=== PATIENT | female | born 1990 | race Caucasian/White ===

== ENCOUNTER 2023-08-03 05:23 | Emergency (ER) | payer MEDICAID ==
[~2023-08-03] VITALS: Ht 162.6 cm; Wt 67.1 kg
[~2023-08-03 05:23] MED LIST: NITR100C6 PO
[2023-08-03 05:30] VITALS: TEMP 97.7
[2023-08-03] MEDS: HYDROcodone/acetaminophen 5mg/325mg tablet PO ONE (06:37)
[2023-08-03] MEDS ORDERED: HYDR-3965 PO (07:01)
[2023-08-03 07:10] VITALS: BP 143/109; PULSE 76; RESP 16; O2SAT 99
== END 2023-08-03 07:12 | disposition home or self-care (01) ==
LOC: ER 05:23
DX: S20.211A Contusion of right front wall of thorax, initial encounter (principal); Z88.0 Allergy status to penicillin; Z88.8 Allergy status to other drugs, medicaments and biological substances; I10 Essential (primary) hypertension; F41.9 Anxiety disorder, unspecified; W18.30XA Fall on same level, unspecified, initial encounter; Y93.89 Activity, other specified; Y92.89 Other specified places as the place of occurrence of the external cause; Y99.8 Other external cause status
CPT/HCPCS: 71111; 99283